=== PATIENT | male | born 1940 | race Asian ===

== ENCOUNTER 2024-10-11 15:05 | Inpatient (IN) | payer MEDICARE, MEDICAID ==
[~2024-10-11] VITALS: Ht 177.8 cm; Wt 76.2 kg
[2024-10-11] MEDS ORDERED: IOHEXOL 350 MG/ML 100 ML VIAL ONE (15:27)
[2024-10-11 15:46] LABS: GLUCOMETER DEV NAME(LOC) ER.7; GLUCOSE,POINT OF CARE 176 MG/DL (70-110)
[2024-10-11 15:46] LABS: BASOPHILS % (AUTO) 0.8 % (0.0-2.0); EOSINOPHILS % (AUTO) 5.6 % (1.0-6.0); HEMATOCRIT 34.9 % (41-53); HEMOGLOBIN 12.2 g/dL (13.5-17.5); LYMPHOCYTES % (AUTO) 23.4 % (22.0-44.0); MEAN CORPUSCULAR HEMOGLOBIN 33.7 pg (26.0-34.0); MEAN CORPUSCULAR HGB CONC 34.8 G/dL (31.0-37.0); MEAN CORPUSCULAR VOLUME 97 fL (80-100); MONOCYTES # (AUTO) 0.7 K/uL (0.1-1.0); MONOCYTES % (AUTO) 8.6 % (2.0-9.0); NEUTROPHILS # (AUTO) 5.2 K/uL (1.8-7.7); NEUTROPHILS % (AUTO) 61.6 % (40.0-70.0); PLATELET COUNT (AUTO) 247 K/uL (150-450); WHITE BLOOD COUNT (AUTO) 8.5 K/uL (4.5-11.0)
[2024-10-11 15:54] LABS: ANION GAP 5 mmol/L (8-16); CALCIUM, TOTAL 8.6 mg/dL (8.8-10.5); CARBON DIOXIDE 30 mmol/L (22-29); CHLORIDE 102 mmol/L (98-107); CREATININE 2.57 mg/dL (0.60-1.30); GLOMERULAR FILTR. RATE CALC 24 mL/min (>60); GLUCOSE,RANDOM 176 mg/dL (70-110); POTASSIUM 4.1 mmol/L (3.5-5.1); SODIUM SERUM 137 mmol/L (136-145); UREA NITROGEN, BLOOD 51 mg/dL (7-18)
[2024-10-11 15:59] LABS: PROTHROMBIN TIME 10.4 SEC (9.4-11.6)
[2024-10-11] MEDS ORDERED: ASPIRIN 325 MG TABLET PO ONE (16:00)
[2024-10-11 16:02] LABS: ALBUMIN 3.7 g/dL (3.4-5.0); BILIRUBIN,DIRECT 0.1 mg/dL (0.00-0.20); BILIRUBIN,TOTAL 0.5 mg/dL (0.1-1.0); TOTAL PROTEIN, SERUM 7.5 g/dL (6.4-8.2)
[2024-10-11 16:04] LABS: TROPONIN I-HIGH SENSITIVITY 39 ng/L (<76)
[2024-10-11 16:38] LABS: ANION GAP 8 mmol/L (8-16); CALCIUM, TOTAL 8.4 mg/dL (8.8-10.5); CARBON DIOXIDE 29 mmol/L (22-29); CHLORIDE 102 mmol/L (98-107); CREATININE 2.56 mg/dL (0.60-1.30); GLOMERULAR FILTR. RATE CALC 24 mL/min (>60); GLUCOSE,RANDOM 176 mg/dL (70-110); POTASSIUM 4.1 mmol/L (3.5-5.1); SODIUM SERUM 139 mmol/L (136-145); UREA NITROGEN, BLOOD 52 mg/dL (7-18)
[2024-10-11 16:42] LABS: ALANINE AMINOTRANSFERASE 33 U/L (12-78); ALBUMIN 3.6 g/dL (3.4-5.0); ALKALINE PHOSPHATASE 50 U/L (46-116); ASPARTATE AMINOTRANSFERASE 18 U/L (15-37); BILIRUBIN,TOTAL 0.4 mg/dL (0.1-1.0); CHOL/HDL RATIO 3.3 (4.2-7.3); CHOLESTEROL 126 mg/dL (131-200); HDL CHOLESTEROL 38 mg/dL (40-60); TOTAL PROTEIN, SERUM 7.4 g/dL (6.4-8.2); TRIGLYCERIDES 415 mg/dL (15-150)
[2024-10-11] MEDS: ASPIRIN 81 MG CHEWABLE TABLET PO ONE (16:45)
[2024-10-11] MEDS: ATORVASTATIN CALCIUM 40 MG TABLET PO ONE (16:45)
[2024-10-11] MEDS: CLOPIDOGREL BISULFATE 75 MG TABLET PO ONE ×2 (16:45→16:58)
[2024-10-11 18:27] LABS: APPEARANCE,URINE CLEAR (CLEAR); BILIRUBIN,URINE NEGATIVE (NEGATIVE); COLOR,URINE YELLOW (YELLOW); GLUCOSE, URINE (UA) NEGATIVE (NEGATIVE); KETONES,URINE NEGATIVE (NEGATIVE); LEUKOCYTE ESTERASE ,URINE NEGATIVE (NEGATIVE); NITRATE,URINE NEGATIVE (NEGATIVE); OCCULT BLOOD,URINE NEGATIVE (NEGATIVE); PROTEIN,URINE NEGATIVE (NEGATIVE); SPECIFIC GRAVITIY, URINE 1.034 (1.003-1.030); UROBILINOGEN,URINE <=1.0 mg/dL (<=1.0)
[2024-10-11 18:32] LABS: ALCOHOL, URINE DRUG SCREEN NEGATIVE (NEGATIVE); AMPHET/METH SCREEN,URINE NEGATIVE (NEGATIVE); BARBITURATE SCREEN, URINE NEGATIVE (NEGATIVE); BENZODIAZEPINES SCREEN,URINE NEGATIVE (NEGATIVE); CANNABINOID SCREEN,URINE NEGATIVE (NEGATIVE); COCAINE SCREEN,URINE NEGATIVE (NEGATIVE); METHADONE SCREEN, URINE NEGATIVE (NEGATIVE); OPIATE SCREEN,URINE NEGATIVE (NEGATIVE); PHENCYCLIDINE SCREEN,URINE NEGATIVE (NEGATIVE)
[2024-10-11 18:47] LABS: BACTERIA,URINE Rare /HPF (None Seen); RBC,URINE 0-2 /HPF (0-2); SQUAMOUS EPITHELIAL CELL,UR Rare /LPF (None Seen); WBC,URINE 0-2 /HPF (0-5)
[2024-10-11] MEDS ORDERED: MORPHINE SULFATE 2 MG/ML SYRINGE IVP PRN (21:00)
[2024-10-11] MEDS ORDERED: HYDROCODONE/ACETAMINOPHEN 5-325 MG TABLET PO PRN (21:00)
[2024-10-11] MEDS ORDERED: ZOLPIDEM TARTRATE 5 MG TABLET PO PRN (21:00)
[2024-10-11] MEDS ORDERED: ACETAMINOPHEN 325 MG TABLET PO PRN (21:00)
[2024-10-11] MEDS ORDERED: ONDANSETRON HCL 4 MG/2 ML VIAL IVP PRN (21:00)
[2024-10-11] MEDS ORDERED: MAGNESIUM HYDROXIDE SUSPENSION 30 ML UDCUP PO PRN (21:00)
[2024-10-11] MEDS ORDERED: BISACODYL 10 MG RECTAL RECTAL SUPPOSITORY PR PRN (21:00)
[2024-10-11 21:04] VITALS: BP 125/72; PULSE 77; RESP 18; TEMP 97.5; O2SAT 99
[2024-10-11] MEDS: DOCUSATE SODIUM 100 MG CAPSULE PO SCH (21:34)
[2024-10-11] MEDS: ATORVASTATIN CALCIUM 20 MG TABLET PO SCH (21:35)
[2024-10-12] MEDS: HEPARIN SODIUM,PORCINE 5,000 UNITS/ML VIAL SQ SCH (00:39)
[2024-10-12 01:37] VITALS: BP 124/72; PULSE 65; RESP 18; TEMP 97.3; O2SAT 98
[2024-10-12 05:26] VITALS: BP 120/70; PULSE 65; RESP 18; TEMP 97.9; O2SAT 98
[2024-10-12 06:37] LABS: BASOPHILS % (AUTO) 1.2 % (0.0-2.0); EOSINOPHILS % (AUTO) 7.8 % (1.0-6.0); HEMATOCRIT 35.3 % (41-53); HEMOGLOBIN 12.5 g/dL (13.5-17.5); LYMPHOCYTES # (AUTO) 1.7 K/uL (1.0-4.8); LYMPHOCYTES % (AUTO) 27.3 % (22.0-44.0); MEAN CORPUSCULAR HEMOGLOBIN 34.1 pg (26.0-34.0); MEAN CORPUSCULAR HGB CONC 35.4 G/dL (31.0-37.0); MEAN CORPUSCULAR VOLUME 97 fL (80-100); MONOCYTES # (AUTO) 0.7 K/uL (0.1-1.0); MONOCYTES % (AUTO) 10.9 % (2.0-9.0); NEUTROPHILS # (AUTO) 3.3 K/uL (1.8-7.7); NEUTROPHILS % (AUTO) 52.8 % (40.0-70.0); PLATELET COUNT (AUTO) 262 K/uL (150-450); RED BLOOD CELL COUNT(AUTO) 3.66 MIL/uL (4.50-5.90); RED CELL DISTRIBUTION WIDTH 13.7 % (11.5-14.5); WHITE BLOOD COUNT (AUTO) 6.2 K/uL (4.5-11.0)
[2024-10-12 06:47] LABS: CALCIUM, TOTAL 8.9 mg/dL (8.8-10.5); CREATININE 1.94 mg/dL (0.60-1.30)
[2024-10-12 08:28] VITALS: BP 124/75; PULSE 68; RESP 18; TEMP 97.7; O2SAT 98
[2024-10-12] MEDS: PANTOPRAZOLE SODIUM 40 MG DR TABLET PO SCH (08:31)
[2024-10-12] MEDS: ASPIRIN 81 MG CHEWABLE TABLET PO SCH (08:31)
[2024-10-12] MEDS: CLOPIDOGREL BISULFATE 75 MG TABLET PO SCH (08:31)
[2024-10-12 11:35] VITALS: BP 105/73; PULSE 66; RESP 18; TEMP 98; O2SAT 98
[2024-10-12 15:49] VITALS: BP 100/72; PULSE 64; RESP 18; TEMP 97.9; O2SAT 97
[2024-10-12 20:01] VITALS: BP 110/72; PULSE 74; RESP 17; TEMP 97.9; O2SAT 100
[2024-10-13 00:16] VITALS: BP 117/62; PULSE 72; RESP 17; TEMP 97.9; O2SAT 100
[2024-10-13 04:58] VITALS: BP 140/81; PULSE 66; RESP 16; TEMP 97.3; O2SAT 100
[2024-10-13 06:36] LABS: BASOPHILS % (AUTO) 1.4 % (0.0-2.0); HEMATOCRIT 37.4 % (41-53); HEMOGLOBIN 13.1 g/dL (13.5-17.5); LYMPHOCYTES % (AUTO) 29.9 % (22.0-44.0); MEAN CORPUSCULAR HGB CONC 35.1 G/dL (31.0-37.0); MEAN CORPUSCULAR VOLUME 97 fL (80-100); MONOCYTES # (AUTO) 0.6 K/uL (0.1-1.0); MONOCYTES % (AUTO) 9.3 % (2.0-9.0); NEUTROPHILS # (AUTO) 3.5 K/uL (1.8-7.7); NEUTROPHILS % (AUTO) 52.4 % (40.0-70.0); PLATELET COUNT (AUTO) 275 K/uL (150-450); RED BLOOD CELL COUNT(AUTO) 3.86 MIL/uL (4.50-5.90); RED CELL DISTRIBUTION WIDTH 13.7 % (11.5-14.5); WHITE BLOOD COUNT (AUTO) 6.7 K/uL (4.5-11.0)
[2024-10-13 06:46] LABS: CALCIUM, TOTAL 9.2 mg/dL (8.8-10.5); CREATININE 1.81 mg/dL (0.60-1.30)
[2024-10-13 06:54] LABS: CHOL/HDL RATIO 2.8 (4.2-7.3)
[2024-10-13 07:48] VITALS: BP_SYST 134; BP_DIAS 18; BP_DIAS 81; PULSE 68; RESP 18; TEMP 98; O2SAT 99
[2024-10-13 11:37] VITALS: BP 118/74; RESP 18; TEMP 98; O2SAT 99
[2024-10-13] MEDS ORDERED: ATOR40TA28 PO (13:48)
[2024-10-13] MEDS ORDERED: CLOP75TA83 PO (13:48)
[2024-10-13] MEDS ORDERED: ASPI-1450 PO (13:48)
[2024-10-13 15:34] VITALS: BP 132/70; PULSE 62; RESP 18; TEMP 98; O2SAT 98
== END 2024-10-13 15:40 | disposition home health service (06) | DRG 68 ==
LOC: EMS 15:05 → EDH 20:07 → 5N 20:56
PROVIDERS: ADMIT Internal Medicine; ATTEND Internal Medicine
DX: I66.01 Occlusion and stenosis of right middle cerebral artery (principal); D63.8 Anemia in other chronic diseases classified elsewhere; N18.9 Chronic kidney disease, unspecified; I67.1 Cerebral aneurysm, nonruptured; I63.9 Cerebral infarction, unspecified; Z79.02 Long term (current) use of antithrombotics/antiplatelets; Z79.82 Long term (current) use of aspirin
CPT/HCPCS: 70496; 70498; 71045; 80048; 80053; 80061; 80076; 80307; 81001; 82550; 82948; 82962; 83036; 83880; 84443; 84484; 85025; 85610; 85730; 86850; 86900; 86901; 92610; 93005; 93880; 97116; 97162; 97166; 97530; 97535; 99291; J1644; 36415-L1; 36415-TC; 70450; 70450-TC